=== PATIENT | female | born 1985 | race Caucasian/White ===

== ENCOUNTER 2018-08-02 13:00 | Emergency (ER) | payer MEDICAID ==
[~2018-08-02] VITALS: Ht 170.2 cm; Wt 74.6 kg
[2018-08-02 13:13] VITALS: BP 129/91
[2018-08-02] MEDS ORDERED: OXYcodone/APAP 5/325MG TABLET ONE (14:26)
[2018-08-02] MEDS ORDERED: CYCLOBENZAPRINE 10 MG TABLET ONE (14:26)
[2018-08-02] MEDS ORDERED: OXYcodone/APAP 5/325MG TABLET PO ONE (14:30)
[2018-08-02] MEDS ORDERED: CYCLOBENZAPRINE 10 MG TABLET PO ONE (14:30)
--- NOTE | 2018-08-02 14:50 | NUR ---
SBAR report received from RNLele.
--- NOTE | 2018-08-02 14:57 | NUR ---
Patient/Caregiver given discharge instructions and they have confirmed that they understand the instructions. Patient ambulatory with steady gait.
== END 2018-08-02 14:58 | disposition home or self-care (01) ==
LOC: ED 14:49
DX: S30.0XXA Contusion of lower back and pelvis, initial encounter (principal); S70.02XA Contusion of left hip, initial encounter; W01.0XXA Fall on same level from slipping, tripping and stumbling without subsequent striking against object, initial encounter; Y93.89 Activity, other specified; Y92.89 Other specified places as the place of occurrence of the external cause; Y99.8 Other external cause status
CPT/HCPCS: 72110; 99283